=== PATIENT | female | born 1970 | race African-American/Black ===

== ENCOUNTER 2019-04-08 14:12 | Emergency (ER) | payer MEDICAID ==
[~2019-04-08] VITALS: Ht 157.5 cm; Wt 127.0 kg
[~2019-04-08 14:12] MED LIST: ACET-3457; ALBU6.7H; AMLO10TA4; ASPI-1718; HYDR25TA32; LISI-420; NYST1CRE8; SIMV40TA5; [UNRECOGNIZED DRUG - CODE]
[2019-04-08 14:18] VITALS: BP 156/95
[2019-04-08] MEDS: PROMETHAZINE 25 MG/ML VIAL IM ONE (16:03)
[2019-04-08] MEDS: NACL 0.9% 1,000 ML IV ONE (16:13)
[2019-04-08 16:35] LABS: APPEARANCE,URINE HAZY (CLEAR); BILIRUBIN,URINE NEGATIVE (NEGATIVE); BLOOD, URINE TRACE-I (NEGATIVE); COLOR,URINE YELLOW (YELLOW); LEUKOCYTE ESTERASE ,URINE NEGATIVE (NEGATIVE); NITRITE, URINE NEGATIVE (NEGATIVE); UGLUCOSE NEGATIVE (NEGATIVE)
[2019-04-08 16:43] LABS: BASOPHILS % (AUTO) 0.6 % (0.0-2.0); EOSINOPHILS # (AUTO) 0.2 K/uL (0-0.4); EOSINOPHILS % (AUTO) 2.9 % (0.0-4.0); HEMATOCRIT 40.1 % (36-48); HEMOGLOBIN 12.9 g/dL (12.0-16.0); LYMPHOCYTES # (AUTO) 1.5 K/uL (2.5-16.5); LYMPHOCYTES % (AUTO) 26.8 % (20.5-51.1); MEAN CORPUSCULAR HEMOGLOBIN 27 pg (27-31); MEAN CORPUSCULAR HGB CONC 32 g/dL (33-37); MEAN CORPUSCULAR VOLUME 84.3 fL (80-94); MONOCYTES # (AUTO) 0.4 K/uL (0.8-1.0); MONOCYTES % (AUTO) 6.4 % (1.7-9.3); NEUTROPHILS # (AUTO) 3.6 K/uL (1.8-7.7); NEUTROPHILS % (AUTO) 63.3 % (42.2-75.2); PLATELET COUNT (AUTO) 218 K/uL (140-450); RED BLOOD CELL COUNT(AUTO) 4.76 MIL/uL (4.20-5.40); RED CELL DISTRIBUTION WIDTH 15.4 % (11.6-13.7); WHITE BLOOD COUNT (AUTO) 5.7 K/uL (4.8-10.8)
[2019-04-08 16:50] LABS: RBC,URINE 0-5 /HPF (0-5)
[2019-04-08 16:51] LABS: WBC,URINE 0-5 /HPF (0-5)
[2019-04-08 16:59] LABS: ANION GAP 13.2 (8-16); CARBON DIOXIDE 29.4 mmol/L (21-32); POTASSIUM 3.6 mmol/L (3.5-5.1)
[2019-04-08 17:05] LABS: ALBUMIN 2.9 g/dL (3.4-5.0); TOTAL BILIRUBIN 0.2 mg/dL (0.0-1.0)
[2019-04-08] MEDS: HYDROcodone/APAP 5/325 MG 1 TAB TAB PO ONE (18:33)
[2019-04-08 19:24] VITALS: BP 148/72
== END 2019-04-08 19:24 | disposition home or self-care (01) ==
LOC: MED 14:12
DX: R10.9 Unspecified abdominal pain (principal); K76.89 Other specified diseases of liver; N28.1 Cyst of kidney, acquired; E11.9 Type 2 diabetes mellitus without complications; I10 Essential (primary) hypertension; E66.9 Obesity, unspecified; E78.00 Pure hypercholesterolemia, unspecified; Z79.51 Long term (current) use of inhaled steroids; Z79.899 Other long term (current) drug therapy; Z79.891 Long term (current) use of opiate analgesic; Z79.82 Long term (current) use of aspirin; Z88.5 Allergy status to narcotic agent; Z88.6 Allergy status to analgesic agent; Z88.2 Allergy status to sulfonamides
CPT/HCPCS: 36415; 74176; 76700; 80053; 81001; 82150; 82948; 83690; 85025; 96372; 99284; J2550; J7030; Q0092

== ENCOUNTER 2019-04-22 10:27 | Emergency (ER) | payer MEDICAID ==
[~2019-04-22] VITALS: Ht 157.5 cm; Wt 113.4 kg
[~2019-04-22 10:27] MED LIST changes: +SIMV-34; -SIMV40TA5
[2019-04-22 10:37] VITALS: BP 195/86
--- NOTE | 2019-04-22 10:49 | NUR ---
48 Y/O FEMALE PRESENTING WITH C/C OF H/A AND DIZZINESS, NAUSEA. PER PT SINCE THE OF THIS MONTH BEEN USING STOVE TO HEAT HER HOUSE. PT BELIEVES SHE IS INTOXICATED WITH CARBON MONOXIDE. PT ALLERGIC TO SULFA AND DILAUDID. MEDICAL HX OF HTN, DM, HLD. MEDS ON REG BASIS FOR HTN, DM, HLD. JOSELIN LAST NIGHT WAS NOT ABLE TO TOLERATE WELL DUE TO NAUSEA. SIDE RAIL X1. DAUGHTER AT BEDSIDE.
--- NOTE | 2019-04-22 10:49 | NUR ---
Pt taken to bed 2.
[2019-04-22] MEDS ORDERED: HYDROcodone/APAP 5/325 MG 1 TAB TAB PO ONE (11:20)
[2019-04-22] MEDS ORDERED: LISINOPRIL 20 MG TAB PO ONE (11:20)
[2019-04-22] MEDS ORDERED: ONDANSETRON 4 MG ODT PO ONE (11:20)
--- NOTE | 2019-04-22 11:42 | NUR ---
CALLED PHARMACY FOR LISINOPRIL.
--- NOTE | 2019-04-22 12:02 | NUR ---
RT called for blood draw.
--- NOTE | 2019-04-22 12:32 | NUR ---
PT BACK FROM CT VIA WHEELCHAIR
[2019-04-22 13:12] LABS: BASOPHILS % (AUTO) 0.5 % (0.0-2.0); EOSINOPHILS # (AUTO) 0.1 K/uL (0-0.4); EOSINOPHILS % (AUTO) 2.4 % (0.0-4.0); HEMATOCRIT 40.5 % (36-48); HEMOGLOBIN 12.9 g/dL (12.0-16.0); LYMPHOCYTES # (AUTO) 1.4 K/uL (2.5-16.5); LYMPHOCYTES % (AUTO) 22.3 % (20.5-51.1); MEAN CORPUSCULAR HEMOGLOBIN 27 pg (27-31); MEAN CORPUSCULAR HGB CONC 32 g/dL (33-37); MEAN CORPUSCULAR VOLUME 84.5 fL (80-94); MONOCYTES # (AUTO) 0.3 K/uL (0.8-1.0); MONOCYTES % (AUTO) 5.2 % (1.7-9.3); NEUTROPHILS # (AUTO) 4.3 K/uL (1.8-7.7); NEUTROPHILS % (AUTO) 69.6 % (42.2-75.2); PLATELET COUNT (AUTO) 247 K/uL (140-450); RED BLOOD CELL COUNT(AUTO) 4.79 MIL/uL (4.20-5.40); RED CELL DISTRIBUTION WIDTH 15.1 % (11.6-13.7); WHITE BLOOD COUNT (AUTO) 6.2 K/uL (4.8-10.8)
[2019-04-22 13:24] LABS: ANION GAP 13.9 (8-16); CARBON DIOXIDE 30.4 mmol/L (21-32); CREATININE 1.1 mg/dL (0.6-1.3); POTASSIUM 4.3 mmol/L (3.5-5.1)
[2019-04-22 13:29] LABS: ALBUMIN 2.8 g/dL (3.4-5.0); TOTAL BILIRUBIN 0.2 mg/dL (0.0-1.0)
--- NOTE | 2019-04-22 13:59 | NUR ---
Patient being reevaluated by DR OLMOS at bedside.
--- NOTE | 2019-04-22 14:24 | NUR ---
Patient discharged with v/s stable. Written and verbal after care instructions given and explained. Patient alert, oriented and verbalized understanding of instructions. Ambulatory with steady gait. All questions addressed prior to discharge. ID band removed. Patient advised to follow up with PMD. Rx of NORCO&ZOFRAN given. Patient educated on indication of medication including possible reaction and side effects. Opportunity to ask questions provided and answered.
[2019-04-22 14:25] VITALS: BP 157/93
== END 2019-04-22 14:24 | disposition home or self-care (01) ==
LOC: MED 10:27
DX: I10 Essential (primary) hypertension (principal); Z77.29 Contact with and (suspected) exposure to other hazardous substances; J45.909 Unspecified asthma, uncomplicated; E11.9 Type 2 diabetes mellitus without complications; Z90.710 Acquired absence of both cervix and uterus; Z79.51 Long term (current) use of inhaled steroids; Z79.899 Other long term (current) drug therapy; Z79.891 Long term (current) use of opiate analgesic; Z79.82 Long term (current) use of aspirin; Z88.2 Allergy status to sulfonamides; Z88.5 Allergy status to narcotic agent
CPT/HCPCS: 36600; 70450; 71045; 80053; 82803; 85025; 99284; Q0092; Q0162

== ENCOUNTER 2019-06-11 09:45 | Emergency (ER) | payer MEDICAID ==
[~2019-06-11] VITALS: Ht 157.5 cm; Wt 99.8 kg
--- NOTE | 2019-06-11 10:00 | NUR ---
PT AMBULATED TO ER BED 04
[2019-06-11 10:01] VITALS: BP 236/136
--- NOTE | 2019-06-11 10:05 | NUR ---
48/F BIB SELF C/O NAUSEA & CONSTANT HEADCAHE X 2 DAYS. BP 236/136 AT THIS TIME. BLOOD SUGAR 121 AT THIS TIME.MED HX: HTN, DM, L BREAST SURGERY, HIGH CHOLESTEROL, ASTHMA, HYSTERECTOMY.PATIENT STATES PAIN OF 10/10 AT THIS TIME. PATIENT POSITIONED FOR COMFORT; HOB ELEVATED; BEDRAILS UP X1; BED DOWN. ER MD MADE AWARE OF PT STATUS.
[2019-06-11] MEDS ORDERED: KETOROLAC 30 MG/ML VIAL IVP ONE (10:15)
[2019-06-11] MEDS ORDERED: diphenhydrAMINE 50 MG/ML VIAL IVP ONE (10:15)
[2019-06-11] MEDS ORDERED: PROCHLORPERAZINE 10 MG/2 ML VIAL IVP ONE (10:15)
[2019-06-11] MEDS ORDERED: NACL 0.9% 1,000 ML IV ONE (10:15)
[2019-06-11 11:10] LABS: ANION GAP 13.4 (8-16); CARBON DIOXIDE 29.5 mmol/L (21-32); POTASSIUM 3.9 mmol/L (3.5-5.1)
[2019-06-11 11:12] LABS: BASOPHILS % (AUTO) 0.5 % (0.0-2.0); EOSINOPHILS # (AUTO) 0.1 K/uL (0-0.4); EOSINOPHILS % (AUTO) 2.5 % (0.0-4.0); HEMATOCRIT 39.5 % (36-48); HEMOGLOBIN 12.8 g/dL (12.0-16.0); LYMPHOCYTES # (AUTO) 1.6 K/uL (2.5-16.5); LYMPHOCYTES % (AUTO) 30.4 % (20.5-51.1); MEAN CORPUSCULAR HEMOGLOBIN 27 pg (27-31); MEAN CORPUSCULAR HGB CONC 32 g/dL (33-37); MEAN CORPUSCULAR VOLUME 83.6 fL (80-94); MONOCYTES # (AUTO) 0.3 K/uL (0.8-1.0); NEUTROPHILS # (AUTO) 3.3 K/uL (1.8-7.7); NEUTROPHILS % (AUTO) 60.6 % (42.2-75.2); PLATELET COUNT (AUTO) 235 K/uL (140-450); RED BLOOD CELL COUNT(AUTO) 4.73 MIL/uL (4.20-5.40); RED CELL DISTRIBUTION WIDTH 14.8 % (11.6-13.7); WHITE BLOOD COUNT (AUTO) 5.4 K/uL (4.8-10.8)
--- NOTE | 2019-06-11 12:00 | NUR ---
IV removed, catheter intact and site benign. Applied folded 4x4 gauze and tape to stop bleeding.
[2019-06-11 12:09] VITALS: BP 189/97
--- NOTE | 2019-06-11 12:09 | NUR ---
Patient discharged with v/s stable. Written and verbal after care instructions given and explained. Patient verbalized understanding. Ambulatory with steady gait. All questions addressed prior to discharge. Advised to follow up with PMD.
== END 2019-06-11 12:09 | disposition home or self-care (01) ==
LOC: MED 09:45
DX: R51 Headache (principal); J45.909 Unspecified asthma, uncomplicated; E11.9 Type 2 diabetes mellitus without complications; I10 Essential (primary) hypertension; Z90.710 Acquired absence of both cervix and uterus; Z79.82 Long term (current) use of aspirin; Z79.899 Other long term (current) drug therapy; Z88.2 Allergy status to sulfonamides; Z88.5 Allergy status to narcotic agent
CPT/HCPCS: 36415; 80048; 85025; 96374; 96375; 99283; J0780; J1200; J1885; J7030

== ENCOUNTER 2020-04-27 09:27 | Emergency (ER) | payer MEDICAID ==
[~2020-04-27] VITALS: Ht 157.5 cm; Wt 112.5 kg
[2020-04-27 09:27] VITALS: BP 140/78
[~2020-04-27 09:27] MED LIST changes: -AMLO10TA4; +AMLO10TA89; -ASPI-1718; +ASPI-1822
--- NOTE | 2020-04-27 09:36 | NUR ---
PATIENT TAKEN TO BED 2 VIA W/C
--- NOTE | 2020-04-27 09:45 | NUR ---
49 Y/O F BIB SELF C/O SOB AND COUGH X 4 DAYS. A&OX4. PT STATED DRY, NONPRODUCTIVE COUGH WITH ASSOCIATED N/V. PT STATES GENREALIZED WEAKNESS AND LOSS OF APPETITE X 4 DAYS. PT REPORTS 9/10 LOWER BACK AND HIP PAIN. DESCRIBES PAIN ACHING IN NATURE AND RADIATES DOWN HER LEFT LEG. PT PLACED ON CHECKER IN, PULSE OX, BP CUFF. ACCUCHEK NORMAL. EQUAL CHEST RISE AND FALL. BED LOCKED IN LOWEST POSITION WITH SIDE RAILS X2. CALL LIGHT WITHIN REACH. PT PLACED IN POSITION OF COMFORT. PMH: ASTHMA, BRONCHITIS, TYPE 2 DM, HTN, HYPERLIPIDEMIA, BREAST CANCER 2013 ALLERGIES: SULFA, DILAUDID RX: METFORMIN, LISINOPRIL, HYDROCHLOROTHIAZIDE, FUROSEMIDE
--- NOTE | 2020-04-27 09:55 | NUR ---
PERFORMED ACCUCHEK: 116
--- NOTE | 2020-04-27 10:00 | NUR ---
EMESIS BAG PROVIDED FOR NAUSEA. PT VOMITED X 1.
[2020-04-27] MEDS ORDERED: KETOROLAC 30 MG/ML VIAL IVP ONE (10:15)
[2020-04-27] MEDS ORDERED: NACL 0.9% 500 ML IV ONE (10:15)
[2020-04-27] MEDS ORDERED: ONDANSETRON 4 MG/2 ML VIAL ONE (10:15)
[2020-04-27] MEDS ORDERED: ONDANSETRON 4 MG/2 ML VIAL IVP ONE (10:20)
[2020-04-27 10:48] LABS: BILIRUBIN,URINE NEGATIVE (NEGATIVE); BLOOD, URINE 2+ (NEGATIVE); COLOR,URINE YELLOW (YELLOW); LEUKOCYTE ESTERASE ,URINE NEGATIVE (NEGATIVE); NITRITE, URINE NEGATIVE (NEGATIVE); UGLUCOSE NEGATIVE (NEGATIVE)
[2020-04-27 10:49] LABS: BASOPHILS % (AUTO) 0.8 % (0.0-2.0); EOSINOPHILS % (AUTO) 0.2 % (0.0-4.0); HEMATOCRIT 37.4 % (36-48); LYMPHOCYTES # (AUTO) 1.1 K/uL (2.5-16.5); LYMPHOCYTES % (AUTO) 28.9 % (20.5-51.1); MEAN CORPUSCULAR HEMOGLOBIN 27 pg (27-31); MEAN CORPUSCULAR HGB CONC 32 g/dL (33-37); MEAN CORPUSCULAR VOLUME 85.1 fL (80-94); MONOCYTES # (AUTO) 0.3 K/uL (0.8-1.0); MONOCYTES % (AUTO) 7.6 % (1.7-9.3); NEUTROPHILS # (AUTO) 2.4 K/uL (1.8-7.7); NEUTROPHILS % (AUTO) 62.5 % (42.2-75.2); PLATELET COUNT (AUTO) 166 K/uL (140-450); RED BLOOD CELL COUNT(AUTO) 4.39 MIL/uL (4.20-5.40); RED CELL DISTRIBUTION WIDTH 16.2 % (11.6-13.7); WHITE BLOOD COUNT (AUTO) 3.8 K/uL (4.8-10.8)
[2020-04-27 10:52] LABS: APPEARANCE,URINE SLIGHTLY CLOUDY (CLEAR)
[2020-04-27 10:58] LABS: WBC,URINE 0-5 /HPF (0-5)
--- NOTE | 2020-04-27 10:58 | NUR ---
[facility] NOTIFIED VIA PHONE PT IS READY
[2020-04-27 10:59] LABS: URINE AMORPHOUS URATE 1+ /HPF (None Seen)
--- NOTE | 2020-04-27 11:04 | NUR ---
XRAY AT BEDSIDE. ASSISTED FROM GURNEY TO WHEELCHAIR WITH NO INCIDENT.
[2020-04-27 11:05] LABS: ALBUMIN 3.4 g/dL (3.4-5.0); ANION GAP 15.3 (8-16); CREATININE 1.9 mg/dL (0.6-1.3); POTASSIUM 4.3 mmol/L (3.5-5.1); TOTAL BILIRUBIN 0.2 mg/dL (0.0-1.0)
--- NOTE | 2020-04-27 11:15 | NUR ---
PT RETURNED FROM [facility]. ASSISTED FROM WHEELCHAIR [facility]NTO [facility] WITH NO INCIDENT. PT PLACED ONTO DEGREASING WHEEL OPERATOR, PULSE OX, BP CUFF. IN POSITION OF COMFORT. BED LOCKED IN PLACE WITH SIDE RAILS X1. CALL LIGHT WITHIN REACH.
--- NOTE | 2020-04-27 11:30 | NUR ---
ERMD MADE AWARE OF 10/10 PAIN AND PT HAS A RIDE HOME. AWARE THAT PT IS REQUESTING A COVID TEST.
[2020-04-27] MEDS ORDERED: MORPHINE SULFATE 2 MG/ML SYR IVP ONE (12:15)
--- NOTE | 2020-04-27 12:28 | NUR ---
spoke to pts sister Lesia France on the phone to update on plan of care [phone]
--- NOTE | 2020-04-27 12:41 | NUR ---
Dr. Ramirez re-evaluating patient at bedside.
[2020-04-27 13:29] VITALS: BP 114/61
--- NOTE | 2020-04-27 13:29 | NUR ---
Patient discharged with v/s stable. Written and verbal after care instructions given and explained. Patient alert, oriented and verbalized understanding of instructions. Ambulatory with steady gait. All questions addressed prior to discharge. ID band removed. Patient advised to follow up with PMD. Rx of Motrin, Tramadol, Robaxin given. Patient educated on indication of medication including possible reaction and side effects. Opportunity to ask questions provided and answered.
== END 2020-04-27 13:29 | disposition home or self-care (01) ==
LOC: MED 09:27
DX: M54.42 Lumbago with sciatica, left side (principal); M54.41 Lumbago with sciatica, right side; G89.29 Other chronic pain; J45.909 Unspecified asthma, uncomplicated; E11.9 Type 2 diabetes mellitus without complications; I10 Essential (primary) hypertension; Z85.3 Personal history of malignant neoplasm of breast; Z98.890 Other specified postprocedural states; Z90.710 Acquired absence of both cervix and uterus; Z79.899 Other long term (current) drug therapy; Z79.82 Long term (current) use of aspirin; Z88.2 Allergy status to sulfonamides; Z88.5 Allergy status to narcotic agent
CPT/HCPCS: 36415; 72100; 80053; 81001; 85025; 87086; 96374; 96375; 99284; J1885; J2270; J2405; J7030

== ENCOUNTER 2021-11-18 11:34 | Emergency (ER) | payer OTHER, MEDICAID ==
[~2021-11-18] VITALS: Ht 157.5 cm; Wt 104.3 kg
[~2021-11-18 11:34] MED LIST changes: -LISI-420; +LISI20TA29
[2021-11-18 11:37] VITALS: BP 124/72
--- NOTE | 2021-11-18 11:50 | NUR ---
Patient was wheelchair assisted to bed 5.
[2021-11-18] MEDS ORDERED: ACETAMINOPHEN EXTRA STRENGTH 500 MG TAB PO ONE ×2 (12:35→13:40)
--- NOTE | 2021-11-18 12:46 | NUR ---
Patient is being taken to radiology via [facility]
--- NOTE | 2021-11-18 13:17 | NUR ---
PT BACK FROM XRAY
--- NOTE | 2021-11-18 13:28 | NUR ---
ATTEMPTED TO MEDICATE PT WITH TYLENOL. PT REFUSED, ASKING FOR PAIN SHOT. PRISCILLA HUMPHREY MADE AWARE AND STATED WITH PTS ALLERGIES, THIS IS THE ONLY OPTION. PT NOTIFIED AND REQUESTED TO SPEAK WITH PRISCILLA HUMPHREY. MILAGRO MADE AWARE
--- NOTE | 2021-11-18 13:59 | NUR ---
Patient was wheelchair assisted to the restroom .
--- NOTE | 2021-11-18 14:19 | NUR ---
PRISCILLA Freire evaluating patient at bedside.
[2021-11-18 15:04] VITALS: BP 123/77
--- NOTE | 2021-11-18 15:04 | NUR ---
Patient discharged with v/s stable. Written and verbal after care instructions given. Patient verbalized understanding. Wheel Chair Assisted with to car. All questions addressed prior to discharge. Advised to follow up with PMD. WORK NOTE HANDED TO LIZA.
== END 2021-11-18 15:04 | disposition home or self-care (01) ==
LOC: MED 11:34
DX: M25.552 Pain in left hip (principal); M25.551 Pain in right hip; M54.50 Low back pain, unspecified; I10 Essential (primary) hypertension; J45.909 Unspecified asthma, uncomplicated; Z88.2 Allergy status to sulfonamides; Z79.1 Long term (current) use of non-steroidal anti-inflammatories (NSAID); Z88.8 Allergy status to other drugs, medicaments and biological substances; Z91.81 History of falling; Z90.12 Acquired absence of left breast and nipple
CPT/HCPCS: 72100; 99284

== ENCOUNTER 2023-02-23 08:36 | Emergency (ER) | payer OTHER, MEDICAID ==
[~2023-02-23] VITALS: Ht 157.5 cm; Wt 99.8 kg
[~2023-02-23 08:36] MED LIST changes: -ALBU6.7H; +ALBU6.7H6; +NYST15CR2; -NYST1CRE8
[2023-02-23 08:56] VITALS: BP 139/82; PULSE 79; RESP 18; TEMP 98; O2SAT 100
[2023-02-23] MEDS: SODIUM PHOSPHATE 118 ML ENEM RC ONE (09:46)
[2023-02-23] MEDS ORDERED: NA P135N RC (10:08)
== END 2023-02-23 10:23 | disposition home or self-care (01) ==
LOC: MED 08:36
DX: K59.00 Constipation, unspecified (principal); I10 Essential (primary) hypertension; E78.5 Hyperlipidemia, unspecified; J45.909 Unspecified asthma, uncomplicated; E11.9 Type 2 diabetes mellitus without complications; Z79.899 Other long term (current) drug therapy; Z88.2 Allergy status to sulfonamides; Z88.5 Allergy status to narcotic agent; Z88.6 Allergy status to analgesic agent; Z98.890 Other specified postprocedural states
CPT/HCPCS: 99284

== ENCOUNTER 2024-01-02 08:09 | Emergency (ER) | payer OTHER, MEDICAID ==
[~2024-01-02] VITALS: Ht 154.9 cm; Wt 89.8 kg
[~2024-01-02 08:09] MED LIST changes: +NA P133E2 RC
[2024-01-02 08:20] VITALS: BP 111/68; PULSE 83; RESP 17; TEMP 97.4; O2SAT 99
[2024-01-02] MEDS ORDERED: LIDOCAINE 5% 1 EA PATCH TP ONE (09:20)
[2024-01-02] MEDS: CYCLOBENZAPRINE 10 MG TAB PO ONE (09:29)
[2024-01-02] MEDS: ACETAMINOPHEN EXTRA STRENGTH 500 MG TAB PO ONE (09:30)
[2024-01-02] MEDS ORDERED: ONDA-188 SL (10:31)
[2024-01-02] MEDS ORDERED: ACET-10509 PO (10:31)
[2024-01-02] MEDS ORDERED: CYCL-711 PO (10:31)
[2024-01-02 10:41] VITALS: BP 118/76; PULSE 68; RESP 18; O2SAT 100
== END 2024-01-02 10:41 | disposition home or self-care (01) ==
LOC: MED 08:09
DX: S16.1XXA Strain of muscle, fascia and tendon at neck level, initial encounter (principal); S39.012A Strain of muscle, fascia and tendon of lower back, initial encounter; J45.909 Unspecified asthma, uncomplicated; E11.9 Type 2 diabetes mellitus without complications; I10 Essential (primary) hypertension; Z85.3 Personal history of malignant neoplasm of breast; Z79.1 Long term (current) use of non-steroidal anti-inflammatories (NSAID); Z79.82 Long term (current) use of aspirin; Z79.899 Other long term (current) drug therapy; Z88.6 Allergy status to analgesic agent; Z88.2 Allergy status to sulfonamides; W18.39XA Other fall on same level, initial encounter; Y93.89 Activity, other specified; Y92.89 Other specified places as the place of occurrence of the external cause; Y99.8 Other external cause status
CPT/HCPCS: 72050; 72100; 99284